=== PATIENT | female | born 1985 | race Hispanic/Latino ===

== ENCOUNTER → 2016-05-01 | Outpatient (CLI) | payer OTHER ==
--- NOTE | 2016-05-01 15:21 | Diagnostic Imaging Report ---
INDICATION: survey. FINDINGS: There is single live intrauterine fetus present. Fetus is currently breech and active. Placenta is anterior and not low. Amniotic fluid index appears normal. Anatomical survey fails to demonstrate a four-chamber heart or complete survey of spine due to position. Other anatomical structures are well visualized including three-vessel cord. Biometric measurements are BPD 4.47 cm, head circumference 16.37 cm, abdominal circumference 14.39 cm, and femur length 3.07 cm with heart beat of 140 beats per minute. Estimated weight is 300 g. IMPRESSION: Sonographic measurements are consistent with 19 weeks 4 days gestation. This correlates within one standard deviation with LMP. Estimated date of delivery by ultrasound is 09/21/2016. Dictated by: Dictated on workstation # [id number]
== END ==
LOC: RAD 13:52
PROVIDERS: ATTEND Family Medicine
DX: Z34.82 Encounter for supervision of other normal pregnancy, second trimester (principal)
CPT/HCPCS: 76805

== ENCOUNTER 2016-08-05 10:39 | Outpatient (CLI) | payer SELFPAY ==
--- NOTE | 2016-08-05 11:25 | Diagnostic Imaging Report ---
OB ultrasound. Biophysical profile. INDICATION: Decreased movement. FINDINGS: heart rate is 134 beats per minutes. The position is cephalic. Total FARHAN is 12 cm. The placenta is anterior. No placenta previa. Biophysical profile parameters are all met with total score of 8 out of 8. IMPRESSION: Biophysical profile score is 8 out of 8. Dictated by: Dictated on workstation # [id number]
[2016-08-05 11:51] VITALS: BP 116/72
== END 2016-08-05 11:51 | disposition home or self-care (01) ==
LOC: RAD 10:39
PROVIDERS: ATTEND Family Medicine
DX: O36.8130 Decreased fetal movements, third trimester, not applicable or unspecified (principal)
CPT/HCPCS: 76819

== ENCOUNTER 2016-09-24 08:29 | Inpatient (IN) | payer OTHER ==
[~2016-09-24] VITALS: Ht 154.9 cm; Wt 78.9 kg
[2016-09-24] VITALS (18 sets, daily range): BP systolic 101–163; BP diastolic 64–87
[2016-09-24] MEDS ORDERED: D5 LR IV SOLUTION 1,000 ML IV SCH (09:09)
[2016-09-24] MEDS ORDERED: LIDOCAINE/EPI 1%-1:200,000 (XYLOCAINE) 30 ML VIAL INJ PRN (09:15)
[2016-09-24] MEDS ORDERED: MINERAL OIL CONCENTRATE 99.9% 15 ML UDC TOP PRN (09:15)
[2016-09-24] MEDS ORDERED: OXYTOCIN/NORMAL SALINE 500 ML IV ONE ×2 (09:28→10:16)
[2016-09-24 09:38] LABS: BASOPHILS % (AUTO) 0 % (0-10); EOSINOPHILS # (AUTO) 0.1 10^3/uL (0.0-0.3); EOSINOPHILS % (AUTO) 1 % (0-10); LYMPHOCYTES # (AUTO) 2.7 X 10^3 (1.0-4.0); LYMPHOCYTES % (AUTO) 19 % (12-44); MEAN CORPUSCULAR HEMOGLOBIN 30 PG (25-34); MEAN CORPUSCULAR HGB CONC 34 G/DL (32-36); MEAN CORPUSCULAR VOLUME 87 FL (80-99); MEAN PLATELET VOLUME 11.3 FL (7.4-10.4); MONOCYTES # (AUTO) 0.7 X 10^3 (0.0-1.0); MONOCYTES % (AUTO) 5 % (0-12); NEUTROPHILS # (AUTO) 10.7 X 10^3 (1.8-7.8); NEUTROPHILS % (AUTO) 75 % (42-75); PLATELET COUNT 205 10^3/uL (130-400); RED BLOOD COUNT 4.25 10^6/uL (4.35-5.85); RED CELL DISTRIBUTION WIDTH 14.1 % (10.0-14.5); WHITE BLOOD COUNT 14.2 10^3/uL (4.3-11.0)
[2016-09-24] MEDS: OXYTOCIN/NORMAL SALINE 500 ML IV SCH ×2 (09:50→10:23)
[2016-09-24] MEDS ORDERED: IBUPROFEN 600 MG (MOTRIN) TAB PO ONE (10:17)
[2016-09-24] MEDS: IBUPROFEN 600 MG (MOTRIN) TAB PO SCH ×3 (10:21→22:57)
--- NOTE | 2016-09-24 10:27 | OB Labor & Delivery Record ---
Vag Delivery Note Vag Delivery Note Date of Delivery: 09/24/16 Preoperative Diagnosis: María Lua is a 30 /Para 2/1 , Gestational Age 39w6d Postoperative Diagnosis: Same Surgeon: JAYME YOUNGBLOOD Manager Infrastructure: Montse Thompson MS3 Anesthesia: None Delivery Type: Spontaneous vaginal Findings: Viable male infant, apgars 8/9, weight 8#0 Lacerations: first degree perineal Intact placenta with 3 vessel cord. No nuchal cord, body cord or shoulder dystocia Estimated Blood Loss: 350 ml Complications: None Condition: Stable Description of Procedure: The patient is a 30 yo who presented in active labor. She was admitted and informed consent was obtained. Her labor course was remarkable for rapid progression after arrival from 7 to complete. She progressed to complete dilatation and began to push. She was then set up for delivery. The infant's head was delivered atraumatically in the CIPRIANO position. The shoulders and remainder of the 's body were then delivered without difficulty. Upon delivery, the was vigorous and was placed on maternal abdomen. After the cord stopped pulsing, the cord was doubly clamped and cut and the infant was handed off to the pediatric staff. An intact placenta with 3-vessel cord delivered via Rosa and there was found to be minimal bleeding.~ Vigorous fundal massage was performed and the fundus was found to be firm. IV oxytocin was given. Examination of the vagina and perineum revealed a first degree laceration repaired in the usual fashion with 3-0 rapide suture. Following the repair, sponge, instrument and needle counts were correct. Mom and baby were both in stable condition in the labor suite. Vitals - Labs Labs Laboratory Tests 09/24/16 09:25: White Blood Count 14.2H, Red Blood Count 4.25L, Hemoglobin 12.6, Hematocrit 37, Mean Corpuscular Volume 87, Mean Corpuscular Hemoglobin 30, Mean Corpuscular Hemoglobin Concent 34, Red Cell Distribution Width 14.1, Platelet Count 205, Mean Platelet Volume 11.3H, Neutrophils (%) (Auto) 75, Lymphocytes (%) (Auto) 19 , Monocytes (%) (Auto) 5, Eosinophils (%) (Auto) 1, Basophils (%) (Auto) 0, Neutrophils # (Auto) 10.7H, Lymphocytes # (Auto) 2.7, Monocytes # (Auto) 0.7, Eosinophils # (Auto) 0.1, Basophils # (Auto) 0.0 JAYME YOUNGBLOOD MD Sep 24, 2016 10:27 am
[2016-09-24] MEDS ORDERED: PREN1TAB86 PO (10:29)
--- NOTE | 2016-09-24 10:34 | History & Physical-OB ---
OB - Chief Complaint & HPI Date/Time Date of Admission: Date of Admission: Sep 24, 2016 at 9:07 am Time Seen by Provider: 09:30 Chief Complaint/History OB-Reason for Admission/Chief: Onset of Labor Hx : 2 Hx Para: 1 Expected Date of Delivery: Sep 25, 2016 Gestational Age in Weeks: 39 Gestational Age in Days: 6 History of Labs O+, RI, HIV/HepB/RPR NR, GC/chlamydia neg. Tetra screen 04/07 risk of trisomy 18 - declined further testing after consult with MFM except had targeted US there which was normal. 1 hour glucola normal. GBS neg. Other History of genital herpes, on suppression therapy from 36 weeks on with acyclovir, no symptoms of burning or pain in vaginal area, no lesions noted on exam yesterday in clinic. Patient reported possible history of migrainous stroke at age 21 outside of the [place], she was told it was due to stress and migraine, her symptoms were not entirely consistent with a localized stroke and an MRI done here prior to for elevated prolactin did not clearly show old ischemia but did show gliosis of unknown etiology in corpus callosum possibly secondary to infection or trauma, less likely ischemia in this location. She was on aspirin most of (had stopped on her own a couple of weeks before delivery) and referred to Neurology at the first visit, but did not attend and also was referred to [facility] due to her abnormal quad screen and history, but apparently did not discuss the stroke like episode with [facility]. Allergies and Home Medications Allergies Coded Allergies: No Known Drug Allergies (Unverified , 09/03/15) Home Medications Vit W-Ca,Fe,FA(<1 mg) 1 Each Tablet, 1 EACH PO DAILY, (Reported) OB - History Hx of Present Care: Yes Ultrasounds: Normal mid trimester US Obstetrical Complications: None Medical Complications: None Other Concerns: See HPI Obstetrical History Hx : 2 Hx Para: 1 Hx # Term Pregnancies: 1 Hx # Pregnancies: 0 Number of Living Children: 1 Hx Termination: No Hx Multiple Gestation: No Hx Ectopic : No Hx Stillbirth: No Hx Complication: No Hx Induced Hypertens: No Hx Maternal Gestational Diabet: No Hx Hemorrhage: No Delivery History Hx Dystocia: No Hx Forceps Assisted Delivery: No Hx Vacuum Extraction Assisted: No Hx Placenta Abnormality: No Hx Distress: No Hx Large For Gestational Age I: No Hx Small for Gestational Age I: No Hx Section: No Hx Vaginal Delivery Post C-Sec: No Hx Blood Disorders: No Adverse Rxn to Tranfusion: No Patient Past Medical History PMHx: Migraines Stroke like symptoms with unclear diagnosis at age 21 Genital herpes PSurgHx: Bilateral inguinal hernia repair Social History/Family History HIV/AIDS: No Sexually Transmitted Disease: Yes (Herpes) Alcohol Use: Denies Use Recreational Drug Use: No Smoking Cessation: Never smoker Immunizations Tetanus Booster (TDap): Less than 5yrs Rubella: immune RPR/VDRL: Negative GBS Status: Negative HBsAG: Negative OB - Admission Exam Physical Exam Date Seen by Provider: Sep 24, 2016 Time Seen by Provider: 09:30 HEENT: NCAT Abdomen: Gravid Cervical Dilatation: 10cm Effacement: 100% Station: +1 Membranes: Intact Heart Rate: 140's Accelerations: Accelerations Present Decelerations: No Decelerations Short Term Variability: Present Community Administrator Variability: Average (6-25) Contractions on Admission: < 5 Minutes Apart Date/Time Contractions Began;: 09/24 at 0300 Intensity: Firm Labs Laboratory Tests Test 09/24/16 09:25 Range/Units White Blood Count 14.2 H 4.3-11.0 10^3/uL Red Blood Count 4.25 L 4.35-5.85 10^6/uL Hemoglobin 12.6 11.5-16.0 G/DL Hematocrit 37 35-52 % Mean Corpuscular Volume 87 80-99 FL Mean Corpuscular Hemoglobin 30 25-34 PG Mean Corpuscular Hemoglobin Concent 34 32-36 G/DL Red Cell Distribution Width 14.1 10.0-14.5 % Platelet Count 205 130-400 10^3/uL Mean Platelet Volume 11.3 H 7.4-10.4 FL Neutrophils (%) (Auto) 75 42-75 % Lymphocytes (%) (Auto) 19 12-44 % Monocytes (%) (Auto) 5 0-12 % Eosinophils (%) (Auto) 1 0-10 % Basophils (%) (Auto) 0 0-10 % Neutrophils # (Auto) 10.7 H 1.8-7.8 X 10^3 Lymphocytes # (Auto) 2.7 1.0-4.0 X 10^3 Monocytes # (Auto) 0.7 0.0-1.0 X 10^3 Eosinophils # (Auto) 0.1 0.0-0.3 10^3/uL Basophils # (Auto) 0.0 0.0-0.1 10^3/uL OB - Assessment/Plan/Diagnosis Assessment Assessment: active labor Plan Plan: Expectant Management Other Plan Monitor BP and neuro status closely Copy Copies To 1: JAYME YOUNGBLOOD MD, BETHANY N MD Sep 24, 2016 10:34 am
--- OUTSIDE RECORDS SUMMARY | 2016-09-24 10:38 | XMS REPORT ---
Author DEVON De Leon [facility] eClinicalWorks Address Unknown Phone Unavailable Care Team Providers Care Dispatcher Service Name Role Phone DEVON BEAVERS CP Unavailable Allergies No Known Allergies Problems Problem Type Condition Code Onset Dates Condition Status Assessment Herpes simplex vulvovaginitis A60.04 Active Medications No Known Medications Results No Known Results Summary Purpose eClinicalWorks Submission
--- OUTSIDE RECORDS SUMMARY | 2016-09-24 10:38 | XMS REPORT ---
Author DEVON De Leon [facility] eClinicalWorks Address Unknown Phone Unavailable Care Team Providers Care Telegraph Dispatcher Name Role Phone DEVON BEAVERS CP Unavailable Allergies, Adverse Reactions, Alerts Substance Reaction Event Type N.K.D.A. Info Not Available Non Drug Allergy Problems Problem Type Condition Code Onset Dates Condition Status Assessment Labial lesion N90.89 Active Assessment Herpes simplex vulvovaginitis A60.04 Active Assessment Mixed incontinence N39.46 Active Assessment Encounter for cervical Pap smear with pelvic exam Z01.419 Active Medications Medication Code System Code Instructions Start Date End Date Status Dosage Acyclovir [facility] [address]-00 400 MG Orally Three times a day July 17, 2015 1 tablet Detrol LA [facility] [address]-23 4 MG Orally Once a day July 17, 2015 1 capsule Procedures Procedure Coding System Code Date SPECIMEN HANDLING CPT-4 41316 July 17, 2015 Office Visit, Est Pt., Level 4 CPT-4 76050 July 17, 2015 RHETT VIRUS ISOLATE, HSV CPT-4 86729 July 17, 2015 Vital Signs Date/Time: July 17, 2015 Temperature 97.4 F Weight 138.0 lbs Height 5'0" in BMI 26.95 Index Cardiac Monitoring Heart Rate 76 bpm Results Name Result Date Reference Range Unit Abnormality Flag CULTURE, VIRAL (HSV W/ TYPING) PAP TEST W/ HPV REGARDLESS ----HPV, high-risk Negative [id number] Negative ----. . [id number] Summary Purpose eClinicalWorks Submission
--- OUTSIDE RECORDS SUMMARY | 2016-09-24 10:39 | XMS REPORT ---
Author Author NELLA PAM Organization [facility] Address [address] [place] [address] Care Team Providers Care Lead Former Name Role Phone NELLA PAM Unavailable PROBLEMS Type Condition ICD9-CM Code FHO49-NV Code Onset Dates Condition Status SNOMED Code Assessment Stress incontinence N39.3 16 Nov, 2015 Active 98220902 Problem Depression, unspecified depression type F32.9 Active 32141878 Problem Midline cystocele N81.11 Active 100977190 Problem Stress incontinence N39.3 Active 62125485 Problem Tension headache G44.209 Active 931413071 Problem Irregular menstrual bleeding N92.6 Active 82212533 Problem Hirsutism L68.0 Active 167915731 Problem Hyperprolactinemia E22.1 Active 908037109 Problem 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 804147090 ALLERGIES Unknown Allergies SOCIAL HISTORY No smoking Hx information available PLAN OF CARE VITAL SIGNS Height 5'0" in 2015-12-13 Weight 152.6 lbs 2015-12-13 Heart Rate 72 bpm 2015-12-13 Respiratory Rate 18 2015-12-13 BMI 29.80 kg/m2 2015-12-13 Blood pressure systolic 128 mmHg 2015-12-13 Blood pressure diastolic 82 mmHg 2015-12-13 MEDICATIONS Medication Instructions Dosage Frequency Start Date End Date Duration Status Myrbetriq 25 MG Orally Once a day 1 tablet 24h Nov, Active Acyclovir 400 MG Orally Three times a day 1 tablet 8h Jun, 05 days Active RESULTS No Results PROCEDURES Procedure Date Ordered Related Diagnosis Body Site Office Visit, Est Pt., Level 3 Dec 13, 2015 IMMUNIZATIONS No Known Immunizations
--- OUTSIDE RECORDS SUMMARY | 2016-09-24 10:39 | XMS REPORT ---
Author Author DEVNO BEAVERS [facility] eClinicalWorks Address Unknown Phone Unavailable Care Team Providers Care Web Developer Programmer Name Role Phone DEVON BEAVERS CP Unavailable Allergies, Adverse Reactions, Alerts Substance Reaction Event Type N.K.D.A. 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 Medications Medication Code System Code Instructions Start Date End Date Status Dosage Detrol LA [facility] [address]-96 4 MG Orally Once a day July 17, 2015 1 capsule Treximet [facility] [address]-12 85-500 MG Orally 2 times a day PRN September 06, 2015 Take one tablet at the onset of headache, may repeat in 2 hours if needed for continued headache Acyclovir [facility] [address]-58 400 MG Orally Three times a day July 17, 2015 1 tablet Trazodone HCl [facility] [address]-49 50 mg Orally Once a day August 09, 2015 Take 1/2 tablet at hs and if needed may take the other half Procedures Procedure Coding System Code Date Office Visit, Est Pt., Level 3 CPT-4 74335 Nov 04, 2015 Vital Signs Date/Time: Nov 04, 2015 Cardiac Monitoring Heart Rate 68 bpm Weight 149.0 lbs Height 5'0" in BMI 29.10 Index Blood Pressure Diastolic 76 mmHg Blood Pressure Systolic 118 mmHg Results No Known Results Summary Purpose eClinicalWorks Submission
--- OUTSIDE RECORDS SUMMARY | 2016-09-24 10:39 | XMS REPORT ---
Author DEVON De Leon [facility] eClinicalWorks Address Unknown Phone Unavailable Care Team Providers Care Sign Painter Apprentice Name Role Phone DEVON BEAVERS CP Unavailable Allergies No Known Allergies Problems Problem Type Condition Code Onset Dates Condition Status Assessment Labial lesion N90.89 Active Medications No Known Medications Procedures Procedure Coding System Code Date HERPES SIMPLEX TEST CPT-4 00388 July 23, 2015 VENIPUNCT, ROUTINE* CPT-4 42625 July 23, 2015 HERPES SIMPLEX TYPE 2 CPT-4 02854 July 23, 2015 Results No Known Results Summary Purpose eClinicalWorks Submission
--- OUTSIDE RECORDS SUMMARY | 2016-09-24 10:39 | XMS REPORT ---
Author DEVON De Leon Organization eClinicalWorks Address Unknown Phone Unavailable Care Team Providers Care Germination Testing Manager Name Role Phone DEVON BEAVERS CP Unavailable Allergies No Known Allergies Problems Problem Type Condition Code Onset Dates Condition Status Assessment Labial lesion N90.89 Active Medications No Known Medications Results No Known Results Summary Purpose eClinicalWorks Submission
--- OUTSIDE RECORDS SUMMARY | 2016-09-24 10:39 | XMS REPORT ---
Author Author JAYME YOUNGBLOOD Organization 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 069334746 Problem Midline cystocele N81.11 Active 381107853 Problem Depression, unspecified depression type F32.9 Active 30322911 Problem Hirsutism L68.0 Active 688256562 Problem care, subsequent in first trimester Z34.81 Active 288538953 Problem History of herpes genitalis Z86.19 Active 602317569 Problem Stress incontinence N39.3 Active 11519081 Problem Tension headache G44.209 Active 069167738 Problem Migraine without aura and without status migrainosus, not intractable G43.009 Active 074637226 Problem History of stroke Z86.73 Active 088359964 ALLERGIES Unknown Allergies SOCIAL HISTORY No smoking Hx information available PLAN OF CARE VITAL SIGNS MEDICATIONS Medication Instructions Dosage Frequency Start Date End Date Duration Status Aspirin 81 MG Orally Once a day 1 tablet 24h Feb, 30 day(s) Active RESULTS No Results PROCEDURES No Known procedures IMMUNIZATIONS No Known Immunizations
--- OUTSIDE RECORDS SUMMARY | 2016-09-24 10:39 | XMS REPORT ---
Author Author YURI LOMELI [facility] eClinicalWorks Address Unknown Phone Unavailable Care Team Providers Care Extermination Inspector Name Role Phone YURI LOMELI CP Unavailable Allergies, Adverse Reactions, Alerts Substance Reaction Event Type N.K.D.A. 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 Problem Irregular menstrual bleeding N92.6 Active Problem Hyperprolactinemia E22.1 Active Problem Routine health maintenance Z00.00 Active Medications Medication Code System Code Instructions Start Date End Date Status Dosage Phenergan [facility] [address]-57 25 MG Rectal every 12 hrs prn nausea or vomiting Feb 18, 2016 Feb 25, 2016 1 suppository as needed Myrbetriq [facility] [address]-22 25 MG Orally Once a day Dec 13, 2015 1 tablet Procedures Procedure Coding System Code Date URINALYSIS, AUTO, W/O SCOPE CPT-4 70315 Feb 18, 2016 Office Visit, Est Pt., Level 3 CPT-4 43565 Feb 18, 2016 URINE TEST CPT-4 79875 Feb 18, 2016 Vital Signs Date/Time: Feb 18, 2016 Cardiac Monitoring Heart Rate 70 bpm Weight 149.6 lbs Height 5'0" in BMI 29.21 Index Blood Pressure Diastolic 78 mmHg Blood Pressure Systolic 122 mmHg Results Name Result Date Reference Range Unit Abnormality Flag TEST, URINE (IN HOUSE) ----RESULTS POSITIVE [id number] ----Lot # + [id number] ----Control [id number] ----Exp date [id number] UA LONG DIP (IN HOUSE) ----SAYRA negative 20160218 ----GLU negative 20160218 ----SG >=1.030 20160218 ----KET negative 20160218 ----pH 7.0 20160218 ----Protein negative 20160218 ----BLO negative 20160218 ----LESLIE negative 20160218 ----Color yellow 20160218 ----Lot # [id number] ----Odor none 20160218 ----Exp date 20160218 ----URO 0.2 20160218 ----NIT negative 20160218 ----Clarity clear 20160218 ----Lot # [id number] ----Exp date [id number] Summary Purpose eClinicalWorks Submission
--- OUTSIDE RECORDS SUMMARY | 2016-09-24 10:39 | XMS REPORT | Continuity of Care Document ---
Author Author [facility] Organization [facility] Address Unknown Phone Unavailable Allergies Active Description Code Type Severity Reaction Onset Reported/Identified Relationship to Patient Clinical Status Yes No Known Drug Allergies [id number] Drug Allergy Unknown N/ A 09/03/2015 Medications Problems Date Dx Coded Attending Type Code Diagnosis Diagnosed By 09/05/2015 PAM CARMEN AREA MECHANIC Ot E22.1 HYPERPROLACTINEMIA 09/05/2015 PAM CARMEN AREA MECHANIC Ot N92.6 IRREGULAR MENSTRUATION, UNSPECIFIED 09/05/2015 PAM CARMEN AREA MECHANIC Ot R10.2 PELVIC AND PERINEAL PAIN 09/20/2015 PAM CARMEN AREA MECHANIC Ot E22.1 HYPERPROLACTINEMIA 09/20/2015 PAM CARMEN R AREA MECHANIC Ot N92.6 IRREGULAR MENSTRUATION, UNSPECIFIED 09/20/2015 PAM CARMEN R AREA MECHANIC Ot R10.2 PELVIC AND PERINEAL PAIN 10/29/2015 PAM CARMEN AREA MECHANIC Ot E22.1 HYPERPROLACTINEMIA 10/29/2015 PAM CARMEN R AREA MECHANIC Ot N92.6 IRREGULAR MENSTRUATION, UNSPECIFIED 10/29/2015 PAM CARMEN AREA MECHANIC Ot R10.2 PELVIC AND PERINEAL PAIN 02/24/2016 PAM CARMEN R AREA MECHANIC Ot E22.1 HYPERPROLACTINEMIA 02/24/2016 PAM CARMEN R AREA MECHANIC Ot N92.6 IRREGULAR MENSTRUATION, UNSPECIFIED 02/24/2016 PAM CARMEN AREA MECHANIC Ot R10.2 PELVIC AND PERINEAL PAIN 02/25/2016 YURI LOMELI GYM INSTRUCTOR Ot O21.0 MILD HYPEREMESIS GRAVIDARUM 02/25/2016 YURI LOMELI GYM INSTRUCTOR Ot Z3A.09 9 WEEKS GESTATION OF 03/01/2016 YURI LOMELI GYM INSTRUCTOR Ot O21.0 MILD HYPEREMESIS GRAVIDARUM 03/01/2016 YURI LOMELI GYM INSTRUCTOR Ot Z3A.09 9 WEEKS GESTATION OF 05/01/2016 ARMANIYURI NEVAREZ L GYM INSTRUCTOR Ot O21.0 MILD HYPEREMESIS GRAVIDARUM 05/01/2016 ARMANI YURI L GYM INSTRUCTOR Ot Z3A.09 9 WEEKS GESTATION OF 05/04/2016 JAYME YOUNGBLOOD MD Ot Z34.82 ENCOUNTER FOR SUPRVSN OF NORMAL PREGNANC 05/08/2016 JAYME YOUNGBLOOD MD Ot Z34.82 ENCOUNTER FOR SUPRVSN OF NORMAL PREGNANC 05/18/2016 YURI LOMELI L GYM INSTRUCTOR Ot O21.0 MILD HYPEREMESIS GRAVIDARUM 05/18/2016 YURI LOMELI GYM INSTRUCTOR Ot Z3A.09 9 WEEKS GESTATION OF 05/18/2016 JAYME YOUNGBLOOD MD Ot Z34.82 ENCOUNTER FOR SUPRVSN OF NORMAL PREGNANC 05/18/2016 JAYME YOUNGBLOOD MD, Ot Z34.82 ENCOUNTER FOR SUPRVSN OF NORMAL PREGNANC 08/05/2016 PAM CARMEN AREA MECHANIC Ot E22.1 HYPERPROLACTINEMIA 08/05/2016 PAM CARMEN AREA MECHANIC Ot N92.6 IRREGULAR MENSTRUATION, UNSPECIFIED 08/05/2016 PAM CARMEN AREA MECHANIC Ot R10.2 PELVIC AND PERINEAL PAIN 08/05/2016 YURI LOMELI GYM INSTRUCTOR Ot O21.0 MILD HYPEREMESIS GRAVIDARUM 08/05/2016 YURI LOMELI GYM INSTRUCTOR Ot Z3A.09 9 WEEKS GESTATION OF 08/05/2016 JAYME YOUNGBLOOD MD Ot O36.8130 DECREASED MOVEMENTS, THIRD TRIMEST 09/11/2016 PAM CARMEN AREA MECHANIC Ot E22.1 HYPERPROLACTINEMIA 09/11/2016 PAM CARMEN AREA MECHANIC Ot N92.6 IRREGULAR MENSTRUATION, UNSPECIFIED 09/11/2016 PAM CARMEN AREA MECHANIC Ot R10.2 PELVIC AND PERINEAL PAIN 09/11/2016 YURI LOMELI L GYM INSTRUCTOR Ot O21.0 MILD HYPEREMESIS GRAVIDARUM 09/11/2016 YURI LOMELI GYM INSTRUCTOR Ot Z3A.09 9 WEEKS GESTATION OF Procedures Results Encounters ACCT No. Visit Date/Time Discharge Status Pt. Type Provider Facility Loc./Unit Complaint [id number] 08/05/2016 10:39:00 2016 11:51:00 DIS Outpatient JAYME YOUNGBLOOD MD [facility] RAD [id number] 05/01/2016 13:52:00 ACT Outpatient JAYME YOUNGBLOOD MD [facility] RAD CARE,SUBSEQUENT IN 2ND TRIMESTE [id number] 02/24/2016 13:20:00 ACT Outpatient YURI LOMELI [facility] RAD HYPEREMESIS [id number] 09/03/2015 12:33:00 ACT Outpatient PAM CARMEN APRN [facility] RAD IRREGULAR MENSTRUAL BLEEDING,HYPERPROLACTINEMIA
[2016-09-24] MEDS ORDERED: WITCH HAZEL(TUCKS) 40 EA JAR TOP PRN (11:00)
[2016-09-24] MEDS: BENZOCAINE/MENTHOL (DERMOPLAST) 56 ML CAN TP PRN (12:05)
[2016-09-24] MEDS ORDERED: CATHETER FLUSH 10 ML SYR IV SCH ×2 (14:00)
[2016-09-25 02:05] VITALS: BP 100/64
[2016-09-25] MEDS: IBUPROFEN 600 MG (MOTRIN) TAB PO SCH ×2 (05:20→11:55)
[2016-09-25] MEDS ORDERED: PRENATAL VITAMIN 1 EA TAB PO SCH (07:00)
[2016-09-25 07:06] LABS: BASOPHILS % (AUTO) 0 % (0-10); EOSINOPHILS # (AUTO) 0.2 10^3/uL (0.0-0.3); EOSINOPHILS % (AUTO) 2 % (0-10); LYMPHOCYTES # (AUTO) 2.7 X 10^3 (1.0-4.0); LYMPHOCYTES % (AUTO) 22 % (12-44); MEAN CORPUSCULAR HEMOGLOBIN 30 PG (25-34); MEAN CORPUSCULAR HGB CONC 34 G/DL (32-36); MEAN CORPUSCULAR VOLUME 89 FL (80-99); MEAN PLATELET VOLUME 10.8 FL (7.4-10.4); MONOCYTES # (AUTO) 0.6 X 10^3 (0.0-1.0); MONOCYTES % (AUTO) 5 % (0-12); NEUTROPHILS # (AUTO) 8.6 X 10^3 (1.8-7.8); NEUTROPHILS % (AUTO) 71 % (42-75); PLATELET COUNT 188 10^3/uL (130-400); RED BLOOD COUNT 3.93 10^6/uL (4.35-5.85); RED CELL DISTRIBUTION WIDTH 14.2 % (10.0-14.5); WHITE BLOOD COUNT 12.1 10^3/uL (4.3-11.0)
--- NOTE | 2016-09-25 09:03 | Progress Note (SOAP) ---
Subjective Subjective/Events-last exam Patient presents today in no acute distress. Patient states that she has been having lower abdominal cramping. The cramping has occurred 3 times since delivery and lasts for 20 minutes each time. The patient states that it feels as if she is having a contraction. Patient states that she experiences vaginal bleeding along with the abdominal cramping. Additionally, patient states she had a unilateral (R side) migraine-like headache last night. She rated the pain a 3/10. Patient states she feels weak. Patient denies feeling faint when she stands up. Patient has been able to urinate but has not had a bowel movement since delivery. Patient is and formula feeding. Review of Systems Date Seen by Provider: Sep 25, 2016 Time Seen by Provider: 07:45 HEENT: Head Aches Gastrointestinal: Abdominal Pain Neurological: Weakness Objective Exam Last Set of Vital Signs Vital Signs Date Time Temp Pulse Resp B/P (MAP) Pulse Ox O2 Delivery O2 Flow Rate FiO2 09/25/16 02:05 97.5 80 18 100/64 97 Room Air Capillary Refill : I&O Bad tableGeneral: Alert, Oriented X3, Cooperative Lungs: Clear to Auscultation, Normal Air Movement Heart: Regular Rate, Normal S1, Normal S2 Extremities: No Edema, No Tenderness/Swelling Psych/Mental Status: Mood NL Results/Procedures Lab Laboratory Tests 09/24/16 09:25: White Blood Count 14.2H, Red Blood Count 4.25L, Hemoglobin 12.6, Hematocrit 37, Mean Corpuscular Volume 87, Mean Corpuscular Hemoglobin 30, Mean Corpuscular Hemoglobin Concent 34, Red Cell Distribution Width 14.1, Platelet Count 205, Mean Platelet Volume 11.3H, Neutrophils (%) (Auto) 75, Lymphocytes (%) (Auto) 19 , Monocytes (%) (Auto) 5, Eosinophils (%) (Auto) 1, Basophils (%) (Auto) 0, Neutrophils # (Auto) 10.7H, Lymphocytes # (Auto) 2.7, Monocytes # (Auto) 0.7, Eosinophils # (Auto) 0.1, Basophils # (Auto) 0.0 09/25/16 06:59: White Blood Count 12.1H, Red Blood Count 3.93L, Hemoglobin 11.8, Hematocrit 35, Mean Corpuscular Volume 89, Mean Corpuscular Hemoglobin 30, Mean Corpuscular Hemoglobin Concent 34, Red Cell Distribution Width 14.2, Platelet Count 188, Mean Platelet Volume 10.8H, Neutrophils (%) (Auto) 71, Lymphocytes (%) (Auto) 22 , Monocytes (%) (Auto) 5, Eosinophils (%) (Auto) 2, Basophils (%) (Auto) 0, Neutrophils # (Auto) 8.6H, Lymphocytes # (Auto) 2.7, Monocytes # (Auto) 0.6, Eosinophils # (Auto) 0.2, Basophils # (Auto) 0.0 Assessment/Plan Assessment/Plan Admission Dx 1. abdominal cramping 2. headache 3. plan for discharge Plan 1. abdominal cramping -ibuprofen PRN, consider heating pad 2. headache -consider migraine prophylaxis, discuss at an outpatient visit and when the patient is not 3. discharge -if baby's 24 bilirubin is normal, plan to go home today Diagnosis/Problems: Clinical Quality Measures DVT/VTE Risk/Contraindication: Risk Factor Score Per Nursin RFS Level Per Nursing on Admit: 1=Low/No VTE PPSTACEY MARTÍNEZ MED STUDENT Sep 25, 2016 09:03
--- NOTE | 2016-09-25 09:11 | Discharge Summary ---
Diagnosis/Chief Complaint Date of Admission Sep 24, 2016 at 9:07 am Date of Discharge September 25, 2016 Admission Diagnosis Admission Diagnosis Term intrauterine at 39 weeks Spontaneous onset of labor Blood type O+ RI GBS neg Abnormal quad screen (04/07 risk T18) Genital herpes on acyclovir History of stroke-like event over 10 years ago Discharge Diagnosis s/p spontaneous vaginal delivery with first degree perineal laceration repair Blood type O positive- no need for rhogam RI- no need for MMR GBS neg Abnormal quad screen (04/07 risk T18)- MFM targeted US normal and infant with no abnormalities on exam Genital herpes on acyclovir- no evidence of outbreak, d/c suppressive therapy and monitor History of stroke-like event over 10 years ago- did not attend Neurology referral as of yet, recommend proceeding with referral. 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 Chief Complaint/HPI Chief Complaint/HPI 30 yo G2 now P2 presented in active labor at 39w6d. Discharge Summary-Simple/Stand Procedures Spontaneous vaginal delivery First degree laceration repair Discharge Physical Examination Allergies: Coded Allergies: No Known Drug Allergies (Unverified , 09/03/15) Vitals & I&Os Vital Sign - Last 12Hours Date Time Temp Pulse Resp B/P (MAP) Pulse Ox O2 Delivery O2 Flow Rate FiO2 09/25/16 02:05 97.5 80 18 100/64 97 Room Air General Appearance: Alert, Oriented X3, No Acute Distress Respiratory: Clear to Auscultation, Normal Air Movement Cardiovascular: Regular Rate, No Murmurs Abdominal: Other (fundus firm below umbilicus, appropriately ttp) Extremities: No Edema Neuro: Normal Speech, Strength at 5/5 X4 Ext, Normal Tone Psych/Mental Status: Mental Status NL, Mood NL Hospital Course Patient admitted and progressed rapidly through labor without complication. Delivered via with first degree laceration. Had elevated BP at time of delivery, no further elevated blood pressure . course uncomplicated, ambulated, tolerated diet, voided. She denied chest pain, shortness of breath, calf pain or swelling. Had some abdominal cramping and leg pain descending from pelvic area into both legs. Labs Laboratory Tests Test 09/24/16 09:25 09/25/16 06:59 Range/Units White Blood Count 14.2 H 12.1 H 4.3-11.0 10^3/uL Red Blood Count 4.25 L 3.93 L 4.35-5.85 10^6/uL Hemoglobin 12.6 11.8 11.5-16.0 G/DL Hematocrit 37 35 35-52 % Mean Corpuscular Volume 87 89 80-99 FL Mean Corpuscular Hemoglobin 30 30 25-34 PG Mean Corpuscular Hemoglobin Concent 34 34 32-36 G/DL Red Cell Distribution Width 14.1 14.2 10.0-14.5 % Platelet Count 205 188 130-400 10^3/uL Mean Platelet Volume 11.3 H 10.8 H 7.4-10.4 FL Neutrophils (%) (Auto) 75 71 42-75 % Lymphocytes (%) (Auto) 19 22 12-44 % Monocytes (%) (Auto) 5 5 0-12 % Eosinophils (%) (Auto) 1 2 0-10 % Basophils (%) (Auto) 0 0 0-10 % Neutrophils # (Auto) 10.7 H 8.6 H 1.8-7.8 X 10^3 Lymphocytes # (Auto) 2.7 2.7 1.0-4.0 X 10^3 Monocytes # (Auto) 0.7 0.6 0.0-1.0 X 10^3 Eosinophils # (Auto) 0.1 0.2 0.0-0.3 10^3/uL Basophils # (Auto) 0.0 0.0 0.0-0.1 10^3/uL Discharge Instructions to patient/family Please see electonic discharge instructions given to patient. Discharge Medications Reviewed and agree with Discharge Medication list on patient's Discharge Instruction sheet Clinical Quality Measures DVT/VTE Risk/Contraindication: Risk Factor Score Per Nursin RFS Level Per Nursing on Admit: 1=Low/No VTE PPX Copy Copies To 1: JAYME YOUNGBLOOD MD, BETHANY N MD Sep 25, 2016 9:10 am
[2016-09-25] MEDS ORDERED: ASPI-999 PO (09:19)
[2016-09-25] MEDS ORDERED: ACYC400T PO (09:19)
[2016-09-25 09:21] VITALS: BP 113/76
[2016-09-25] MEDS ORDERED: IBUP-1773 PO (09:21)
--- NOTE | 2016-09-25 09:24 | Discharge Instructions ---
Discharge Inst-Women's Serv Depart Medications New, Converted or Re-Newed RX: Transmitted to Pharmacy New Medications: Ibuprofen (Ibuprofen) 600 Mg Tablet 600 MG PO Q6H PRN for PAIN-MILD TO MODERATE, #60 TAB 0 Refills Continued Medications: Vit W-Ca,Fe,FA(<1 mg) ( Vitamins) 1 Each Tablet 1 EACH PO DAILY, TAB Discontinued Medications: Acyclovir (Acyclovir) 400 Mg Tablet 400 MG PO TID, TAB Aspirin (Aspirin) 81 Mg Tab.chew 81 MG PO DAILY, TAB Follow Up/Instructions Goal/Follow Up: Follow up with Dr. Morales in 6 weeks for visit We still recommend seeing Neurology for consultation- if you need assistance scheduling, please let [facility] know. (Referral has been placed previously to Dr. Jeancarlos Esquivel) Activity Activity: Activity as Tolerated (avoid strenuous activity x 6 weeks) Driving Instructions: You May Drive Nothing Inside Vagina: No Douching, No [place], No Tampons Diet Discharge Diet: No Restrictions Symptoms to Report to : Numbness/Tingling, Swelling Increased, Eyesight Changes, Fever Over 101 Degrees F, Pain/Pressure in Chest, Vaginal Bleeding Increase, Cramps in Feet or Legs, Lightheadedness, Vaginal Discharge Foul, Memory Changes Suddenly, Dizziness/Fainting, Shortness of Breath For Any Problems or Questions: Contact Your Physician Copies To 1: JAYME MORALES MD, BETHANY N MD Sep 25, 2016 9:24 am
[2016-09-25 12:36] VITALS: BP 121/77
[2016-09-25] MEDS: BENZOCAINE/MENTHOL (DERMOPLAST) 56 ML CAN TP PRN (13:30)
== END 2016-09-25 13:50 | disposition home or self-care (01) | DRG 774 ==
LOC: WSo 08:29 → LDRP 08:30 → WSo 09:09 → LDRP 12:50
PROVIDERS: ADMIT Family Medicine; ATTEND Family Medicine
PROC: 0HQ9XZZ Repair Perineum Skin, External Approach (ICD-10-PCS; principal; 2016-09-24)
PROC: 10E0XZZ Delivery of Products of Conception, External Approach (ICD-10-PCS; 2016-09-24)
DX: O98.513 Other viral diseases complicating pregnancy, third trimester (principal); B00.9 Herpesviral infection, unspecified; O70.0 First degree perineal laceration during delivery; R51 Headache; Z3A.39 39 weeks gestation of pregnancy; Z37.0 Single live birth
CPT/HCPCS: 36415; 85025; 86850; 86900; 86901; 99212

== ENCOUNTER → 2019-05-24 | Outpatient (CLI) | payer SELFPAY ==
[~2019-05-24] MED LIST: ACYC400T PO; ASPI-999 PO; IBUP-1773 PO; PREN1TAB86 PO
--- NOTE | 2019-05-24 14:04 | Diagnostic Imaging Report ---
PROCEDURE: US OB SINGLE FETUS <14 WKS. TECHNIQUE: Multiple real-time grayscale images were obtained over the gravid uterus in various projections. INDICATION: dating. FINDINGS: Uterus measures 11.1 x 7.8 x 8.7 cm. There is an intrauterine gestational sac containing a pole. [place]-rump length measurement is approximately 3.0 cm consistent with 10 weeks 0 days gestation. heart rate was recorded at 172 BPM. No roger-gestational sac hemorrhage is detected. Maternal adnexa is unremarkable. IMPRESSION: Single live IUP approximately 10 weeks 0 days gestational age. The estimated date of confinement sonographically is 12/20/2019. Dictated by: Dictated on workstation # [id number]
== END ==
LOC: RAD 11:16
PROVIDERS: ATTEND Family Medicine
DX: Z34.91 Encounter for supervision of normal pregnancy, unspecified, first trimester (principal); Z3A.10 10 weeks gestation of pregnancy
CPT/HCPCS: 76801

== ENCOUNTER 2019-12-13 06:00 | Inpatient (IN) | payer OTHER ==
[2019-12-13] VITALS (21 sets, daily range): BP systolic 92–162; BP diastolic 51–90
--- NOTE | 2019-12-13 06:30 | NUR ---
ZACHERY LOYOLA presented to unit via ambulatory from ED, accompanied by staff, with c/o INDUCTION. ZACHERY LOYOLA weighed, gowned, voided, and to bed. EFHM and TOCO applied, VS taken. ZACHERY LOYOLA oriented to bed controls, call light, TV, heat, and A/C controls.
[2019-12-13] MEDS ORDERED: D5 LR IV SOLUTION 1,000 ML IV SCH (07:50)
[2019-12-13] MEDS ORDERED: OXYTOCIN PRE-MIX DRIP 500 ML IV SCH ×2 (07:50→12:15)
[2019-12-13] MEDS ORDERED: D5 LR IV SOLUTION 1,000 ML IV ONE (07:52)
[2019-12-13] MEDS ORDERED: OXYTOCIN PRE-MIX DRIP 500 ML IV ONE (07:53)
[2019-12-13] MEDS ORDERED: MINERAL OIL CONCENTRATE 99.9% 15 ML UDC TOP PRN (08:00)
[2019-12-13 08:04] LABS: BASOPHILS % (AUTO) 0 % (0-10); EOSINOPHILS % (AUTO) 0 % (0-10); HEMATOCRIT 35 % (35-52); HEMOGLOBIN 11.5 G/DL (11.5-16.0); LYMPHOCYTES % (AUTO) 24 % (12-44); MEAN CORPUSCULAR HEMOGLOBIN 28 PG (25-34); MEAN CORPUSCULAR HGB CONC 33 G/DL (32-36); MEAN CORPUSCULAR VOLUME 85 FL (80-99); MEAN PLATELET VOLUME 10.7 FL (7.4-10.4); MONOCYTES # (AUTO) 0.5 X 10^3 (0.0-1.0); MONOCYTES % (AUTO) 6 % (0-12); NEUTROPHILS # (AUTO) 5.8 X 10^3 (1.8-7.8); NEUTROPHILS % (AUTO) 70 % (42-75); PLATELET COUNT 223 10^3/uL (130-400); WHITE BLOOD COUNT 8.4 10^3/uL (4.3-11.0)
--- NOTE | 2019-12-13 08:23 | History & Physical-OB ---
OB - Chief Complaint & HPI Date/Time Date of Admission: Date of Admission: Dec 13, 2019 at 06:20 Date seen by a Provider: Dec 13, 2019 Time Seen by a Provider: 08:55 Chief Complaint/History OB-Reason for Admission/Chief: Induction of Labor Hx : 3 Hx Para: 2 Expected Date of Delivery: Dec 20, 2019 Gestational Age in Weeks: 39 Gestational Age in Days: 0 Indication for induction: maternal discomfort History of Labs O+, antibody neg, RI. HIV/HepB/RPR NR. GC/chlamydia neg. GBS neg. Allergies and Home Medications Allergies Coded Allergies: No Known Drug Allergies (Unverified , 09/03/15) Home Medications Acyclovir 400 Mg Tablet, 400 MG PO TID, (Reported) Vit W-Ca,Fe,FA(<1 mg) 1 Each Tablet, 1 EACH PO DAILY, (Reported) Patient Home Medication List Home Medication List Reviewed: Yes OB - History Hx of Present Care: Yes Ultrasounds: Normal mid trimester US Obstetrical Complications: None Medical Complications: None Obstetrical History Hx : 3 Hx Para: 2 Hx # Term Pregnancies: 2 Hx # Pregnancies: 0 Number of Living Children: 2 Hx Termination: No Hx Multiple Gestation: No Hx Ectopic : No Hx Stillbirth: No Hx Complication: No Hx Induced Hypertens: No Hx Maternal Gestational Diabet: No Hx Hemorrhage: No Delivery History Hx Dystocia: No Hx Forceps Assisted Delivery: No Hx Vacuum Extraction Assisted: No Hx Placenta Abnormality: No Hx Distress: No Hx Large For Gestational Age I: No Hx Small for Gestational Age I: No Hx Section: No Hx Vaginal Delivery Post C-Sec: No Hx Blood Disorders: No Adverse Rxn to Tranfusion: No Patient Past Medical History PMHx: Migraines Stroke like symptoms with unclear diagnosis at age 21 Genital herpes PSurgHx: Bilateral inguinal hernia repair Social History/Family History HIV/AIDS: No Recent Infectious Disease Expo: No Sexually Transmitted Disease: Yes (Herpes) Alcohol Use: Denies Use Recreational Drug Use: No Smoking Cessation: Never smoker 2nd Hand Smoke Exposure: No Immunizations Tetanus Booster (TDap): Less than 5yrs Rubella: immune RPR/VDRL: Negative GBS Status: Negative HBsAG: Negative OB - Admission Exam Physical Exam HEENT: NCAT Abdomen: Non tender Extremities: Normal Cervical Dilatation: 4cm (external genital exam done and no herpes lesions n oted) Effacement: 25% Station: -3 Membranes: Intact Heart Rate: 140's Accelerations: Accelerations Present Decelerations: No Decelerations Short Term Variability: Present Care Home Variability: Average (6-25) Contractions on Admission: 6-10 Minutes Apart Aaron Scoring Tool (Modified) Dilation (cm): 3-4cm (2) Effacement (%): 0-30% (0) Descent/Station: -3 (0) Cervix Consistency: Soft (2) Cervix Position: Anterior (2) Add 1 point for: Each previous vaginal delivery (1) (2) Aaron Score: 8 Labs Laboratory Tests Test 12/13/19 07:30 Range/Units White Blood Count 8.4 4.3-11.0 10^3/uL Red Blood Count 4.09 L 4.35-5.85 10^6/uL Hemoglobin 11.5 11.5-16.0 G/DL Hematocrit 35 35-52 % Mean Corpuscular Volume 85 80-99 FL Mean Corpuscular Hemoglobin 28 25-34 PG Mean Corpuscular Hemoglobin Concent 33 32-36 G/DL Red Cell Distribution Width 14.4 10.0-14.5 % Platelet Count 223 130-400 10^3/uL Mean Platelet Volume 10.7 H 7.4-10.4 FL Neutrophils (%) (Auto) 70 42-75 % Lymphocytes (%) (Auto) 24 12-44 % Monocytes (%) (Auto) 6 0-12 % Eosinophils (%) (Auto) 0 0-10 % Basophils (%) (Auto) 0 0-10 % Neutrophils # (Auto) 5.8 1.8-7.8 X 10^3 Lymphocytes # (Auto) 2.0 1.0-4.0 X 10^3 Monocytes # (Auto) 0.5 0.0-1.0 X 10^3 Eosinophils # (Auto) 0.0 0.0-0.3 10^3/uL Basophils # (Auto) 0.0 0.0-0.1 10^3/uL OB - Assessment/Plan/Diagnosis Assessment Admission Dx Term at 39 weeks gestation Induction of labor Group B strep negative H/O HSV on acyclovir suppression therapy Admission Status: Inpatient Order (span 2 midnights) Reason for Inpatient Admission: Labor, delivery and course Plan Plan: Induction Induction Method: per Pitocin Protocol JAYME YOUNGBLOOD MD Dec 13, 2019 08:23
[2019-12-13] MEDS ORDERED: FLU QUADRIvalent (3YOA+) 60 mcg/0.5 ml 2020-21 (AFLURIA) IM ONE (10:00)
[2019-12-13] MEDS ORDERED: ACYC400T PO (10:21)
--- NOTE | 2019-12-13 11:22 | OB Labor & Delivery Record ---
Vag Delivery Note Vag Delivery Note Date of Delivery: 12/13/19 Preoperative Diagnosis: María Lua is a 34 /Para 3 / 2, Gestational Age (wks)39with 0 days Postoperative Diagnosis: Same Surgeon: JAYME YOUNGBLOOD Collision Repairer: Sania Esqueda, [id number] Anesthesia: None Delivery Type: Findings: Viable male infant, apgars 8/9, weight pending Lacerations: none Intact placenta with 3 vessel cord. [place] cord, No nuchal cord or shoulder dystocia Estimated Blood Loss: 250 ml Complications: None Condition: Stable Description of Procedure: The patient is a 34 year old female who presented for induction of labor. She was admitted and informed consent was obtained. Her labor course was remarkable for rapid course She progressed to complete dilatation and began to push. She was then set up for delivery. The infant's head was delivered atraumatically in the OA position. The shoulders and remainder of the 's body were then delivered without difficulty. Upon delivery, the was vigorous and placed on maternal chest. After the cord stopped pulsing, the cord was doubly clamped and cut and the remained on maternal chest. An intact placenta with 3- vessel cord delivered via Rosa and there was found to be minimal bleeding.~ Vigorous fundal massage was performed and the fundus was found to be firm. IV oxytocin was given. Examination of the vagina and perineum revealed no lacerations. Following the delivery, sponge, instrument and needle counts were correct. Mom and baby were both in stable condition in the labor suite. Vitals - Labs Vital Signs - I&O Vital Signs Date Time Temp Pulse Resp B/P (MAP) Pulse Ox O2 Delivery O2 Flow Rate FiO2 12/13/19 09:42 36.5 83 18 97 Room Air Labs Laboratory Tests 12/13/19 07:30: White Blood Count 8.4, Red Blood Count 4.09L, Hemoglobin 11.5, Hematocrit 35, Mean Corpuscular Volume 85, Mean Corpuscular Hemoglobin 28, Mean Corpuscular Hemoglobin Concent 33, Red Cell Distribution Width 14.4, Platelet Count 223, Mean Platelet Volume 10.7H, Neutrophils (%) (Auto) 70, Lymphocytes (%) (Auto) 24, Monocytes (%) (Auto) 6, Eosinophils (%) (Auto) 0, Basophils (%) (Auto) 0, Neutrophils # (Auto) 5.8, Lymphocytes # (Auto) 2.0, Monocytes # (Auto) 0.5, Eosinophils # (Auto) 0.0, Basophils # (Auto) 0.0 JAYME YOUNGBLOOD MD Dec 13, 2019 11:22
--- NOTE | 2019-12-13 12:00 | NUR ---
REFER TO LABOR FLOW SHEET
[2019-12-13] MEDS ORDERED: WITCH HAZEL(TUCKS) 40 EA JAR TOP PRN (12:15)
[2019-12-13] MEDS ORDERED: MEASLES,MUMPS,RUBELLA 1 EA INJ SQ ONE (12:15)
[2019-12-13] MEDS ORDERED: TETANUS,DIPTH,PERTUSS P/F (BOOSTRIX) 0.5 ML VIAL IM ONE (12:15)
[2019-12-13] MEDS ORDERED: BENZOCAINE/MENTHOL (DERMOPLAST) 60 ML CAN TP PRN (12:15)
[2019-12-13] MEDS: IBUPROFEN 600 MG (MOTRIN) TAB PO SCH ×3 (12:50→23:57)
--- NOTE | 2019-12-13 13:45 | NUR ---
PT TRANSFERRED FROM -317 TO -308 VIA AMBULATORY IN STABLE CONDITION ACCOMPANIED BY THIS RN, FOB, AND INFANT. CALL LIGHT IN REACH. NO FURTHER REQUESTS AT THIS TIME.
[2019-12-13] MEDS ORDERED: CATHETER FLUSH 10 ML SYR IV SCH (14:00)
[2019-12-13] MEDS: CATHETER FLUSH 10 ML SYR IV SCH (19:55)
[2019-12-13] MEDS ORDERED: DOCUSATE SODIUM 100 MG (COLACE) CAP PO SCH (21:00)
[2019-12-14] VITALS: BP 96/65
[2019-12-14 04:00] VITALS: BP 99/69
[2019-12-14] MEDS: IBUPROFEN 600 MG (MOTRIN) TAB PO SCH ×2 (06:06→12:40)
[2019-12-14] MEDS: CATHETER FLUSH 10 ML SYR IV SCH (06:11)
[2019-12-14 06:49] LABS: BASOPHILS % (AUTO) 0 % (0-10); EOSINOPHILS % (AUTO) 0 % (0-10); HEMATOCRIT 33 % (35-52); HEMOGLOBIN 11.3 G/DL (11.5-16.0); LYMPHOCYTES # (AUTO) 2.4 X 10^3 (1.0-4.0); LYMPHOCYTES % (AUTO) 22 % (12-44); MEAN CORPUSCULAR HEMOGLOBIN 29 PG (25-34); MEAN CORPUSCULAR HGB CONC 34 G/DL (32-36); MEAN CORPUSCULAR VOLUME 85 FL (80-99); MEAN PLATELET VOLUME 10.6 FL (7.4-10.4); MONOCYTES # (AUTO) 0.7 X 10^3 (0.0-1.0); MONOCYTES % (AUTO) 7 % (0-12); NEUTROPHILS # (AUTO) 7.5 X 10^3 (1.8-7.8); NEUTROPHILS % (AUTO) 71 % (42-75); PLATELET COUNT 217 10^3/uL (130-400); WHITE BLOOD COUNT 10.7 10^3/uL (4.3-11.0)
--- NOTE | 2019-12-14 07:54 | Discharge Summary ---
Discharge Summary Hospital Course Problems Reviewed?: Yes Problems/Diagnosis: (1) Encounter for induction of labor Status: Acute Assessment & Plan: Uncomplicated induction with pitocin and AROM and rapid delivery thereafter with no lacerations. Uncomplicated course with asymptomatic very mild anemia. (2) History of herpes genitalis Status: Chronic Assessment & Plan: No lesions noted on admission, discontinue prophylaxis on discharge. Hospital Course Date of Admission: Dec 13, 2019 at 06:20 Admission Diagnosis : Family Physician/Provider: Date of Discharge: 12/14/19 Discharge Diagnosis: See problem list Hospital Course: See problem list Labs and Pending Lab Test: Laboratory Tests 12/14/19 06:30: White Blood Count 10.7, Red Blood Count 3.90L, Hemoglobin 11.3L, Hematocrit 33L, Mean Corpuscular Volume 85, Mean Corpuscular Hemoglobin 29, Mean Corpuscular Hemoglobin Concent 34, Red Cell Distribution Width 14.2, Platelet Count 217, Mean Platelet Volume 10.6H, Neutrophils (%) (Auto) 71, Lymphocytes (%) (Auto) 22, Monocytes (%) (Auto) 7, Eosinophils (%) (Auto) 0, Basophils (%) (Auto) 0, Neutrophils # (Auto) 7.5, Lymphocytes # (Auto) 2.4, Monocytes # (Auto) 0.7, Eosinophils # (Auto) 0.0, Basophils # (Auto) 0.0 Home Meds Active Reported Acyclovir 400 Mg Tablet 400 Mg PO TID Vitamins ( Vit W-Ca,Fe,FA(<1 mg)) 1 Each Tablet 1 Each PO DAILY Assessment/Pt DC Instructions Follow up with Dr. Morales in 6 weeks for visit. Discharge Diet: Regular Diet Activity as Tolerated: Yes (avoid strenuous activity x 6 weeks) Discharge Physical Examination Allergies: Coded Allergies: No Known Drug Allergies (Unverified , 09/03/15) General Appearance: No Apparent Distress Respiratory: Lungs Clear, Normal Breath Sounds Cardiovascular: Regular Rate, Rhythm, No Murmur Gastrointestinal: Other (fundus firm at umbilicus) Extremity: No Pedal Edema Skin: Normal Color, Warm/Dry Neurologic/Psychiatric: Alert, Normal Mood/Affect Clinical Quality Measures DVT/VTE Risk/Contraindication: Risk Factor Score Per Nursin RFS Level Per Nursing on Admit: 1=Low/No VTE PPX JAYME MORALES MD Dec 14, 2019 07:54
[2019-12-14 09:00] VITALS: BP 88/54
[2019-12-14 15:00] VITALS: BP 108/68
== END 2019-12-14 17:45 | disposition home or self-care (01) | DRG 807 ==
LOC: LDRP 06:20
PROVIDERS: ADMIT Family Medicine; ATTEND Family Medicine
PROC: 10E0XZZ Delivery of Products of Conception, External Approach (ICD-10-PCS; principal; 2019-12-13)
PROC: 3E033VJ Introduction of Other Hormone into Peripheral Vein, Percutaneous Approach (ICD-10-PCS; 2019-12-13)
DX: O98.32 Other infections with a predominantly sexual mode of transmission complicating childbirth (principal); Z37.0 Single live birth; A60.09 Herpesviral infection of other urogenital tract; Z3A.39 39 weeks gestation of pregnancy; Z79.899 Other long term (current) drug therapy; O69.89X0 Labor and delivery complicated by other cord complications, not applicable or unspecified; O90.81 Anemia of the puerperium; D64.9 Anemia, unspecified; Z23 Encounter for immunization
CPT/HCPCS: 36415; 85025; 86850; 86900; 86901; 90686

== ENCOUNTER 2021-08-08 12:54 | Emergency (ER) | payer SELFPAY ==
[~2021-08-08] VITALS: Ht 151 cm; Wt 74.8 kg
[~2021-08-08 12:54] MED LIST changes: -ACYC400T PO; +ACYC400T21 PO
[2021-08-08] MEDS ORDERED: predniSONE 20 MG TAB PO ONE (13:30)
--- NOTE | 2021-08-08 13:32 | ED General ---
General Chief Complaint: Neuro-Stroke Like Symptoms Stated Complaint: R SIDE OF FACE NUMBNESS Source of Information: Patient Exam Limitations: No Limitations History of Present Illness Date Seen by Provider: August 08, 2021 Time Seen by Provider: 13:31 Initial Comments Patient is a 35-year-old female with a history of Candelaria's palsy who is speaking who presents the ED with right-sided facial pain and numbness. Symptoms started 4 to 5 days ago with right ear pain. Was diagnosed with ear infection was given antibiotics. This pain migrated from the ear to the right forehead, right mid to lower face. Noted drooping and weakness. She reports numbness and tingling sensation. Difficulty eating secondary to the muscle weakness. She reports of pain to the right eye with some eye watering. She is continue having right ear pain with some mild headache and dizziness without any ear ringing. She noted a rash over the past few days to the right outer ear. She states she has a history of Candelaria's palsy 8 to 9 years ago and feels very similar. She has no upper or lower extremity weakness, chest pain, abdominal pain vomiting, diarrhea. Has been taking anti-inflammatories. Went to [facility] and was sent over to the ED for further evaluation. She does report some blurry vision in the right eye. She states last episode she felt like her vision was worse but symptoms did resolve after a few months. According to [facility] she has a history of stroke but after talking with patient she states that she had a similar episode that may been related to the Candelaria' palsy but had some pain in her chest at the time. Patient with a steady gait. She appears in no acute distress. Allergies and Home Medications Allergies Coded Allergies: No Known Drug Allergies (Unverified , 09/03/15) Patient Home Medication List Home Medication List Reviewed: Yes Acyclovir (Acyclovir) 400 Mg Tablet, 400 MG PO 5XD Prescribed by: AMANDA CURRY on 08/08/21 4930 Hydrocodone/Acetaminophen (Hydrocodone-Acetamin 5-325 mg) 5 Mg-325 Mg Tablet, 1 TAB PO Q4H PRN for PAIN-MODERATE (5-7) Prescribed by: AMANDA CURRY on 08/08/21 4272 Prednisone (Prednisone) 50 Mg Tab, 50 MG PO DAILY Prescribed by: AMANDA CURRY on 08/08/21 1338 Vit W-Ca,Fe,FA(<1 mg) ( Vitamins) 1 Each Tablet, 1 EACH PO DAILY, (Reported) Entered as Reported by: ALBERTO SIFUENTES on 09/24/16 1029 Review of Systems Review of Systems Constitutional: No chills, No diaphoresis, No malaise, No weakness EENTM: ear pain, blurred vision, mouth pain; No ear discharge, No vision loss, No dental problems, No nose pain, No throat pain, No throat swelling Respiratory: No cough, No hemoptysis, No orthopnea, No short of breath Cardiovascular: No chest pain Gastrointestinal: No abdominal pain, No diarrhea, No nausea, No vomiting Genitourinary: No decreased output, No discharge Musculoskeletal: No back pain, No joint pain Skin: change in color; No change in hair/nails; rash (Rash to right outer ear) Psychiatric/Neurological: Headache, Numbness (Right-sided facial numbness), Weakness (Right-sided facial muscle weakness), Other (Dizziness) All Other Systems Reviewed Negative Unless Noted: Yes Past Leamspw-Ttbrvn-Oanath Hx Immunizations Up To Date Tetanus Booster (TDap): Less than 5yrs PED Vaccines UTD: Yes Seasonal Allergies Seasonal Allergies: No Past Medical History Surgeries: No Respiratory: No Cardiac: No Neurological: No Female Reproductive Disorders: Denies Sexually Transmitted Disease: No HIV/AIDS: No Genitourinary: No Gastrointestinal: No Musculoskeletal: No Endocrine: No HEENT: No Loss of Vision: Denies Hearing Impairment: Denies Cancer: No Psychosocial: No Integumentary: No Blood Disorders: No Adverse Reaction/Blood Tranf: No Family Medical History Cardiovascular disease Congenital heart disease FH: liver cancer Grandparents (Maternal Grandmother) Hypercholesterolemia 19 FATHER Hypertension 19 FATHER Kidney disease Grandparents (Maternal Grandfather) Physical Exam Vital Signs Vital Signs - First Documented 08/08/21 13:03 Temp 36.3 Pulse 81 Resp 16 B/P (MAP) 148/94 (112) Pulse Ox 98 Capillary Refill : Height, Weight, BMI Height: 5'1.00" Weight: 174lbs. 0.0oz. [id number]; 32.9 BMI Method: General Appearance: No Apparent Distress, WD/WN Eyes: Bilateral Eye Normal Inspection, Bilateral Eye PERRL, Bilateral Eye EOMI HEENT: PERRL/EOMI, Other (Erythematous papular rash to the right outer ear. Small vesicles. No pustules. Mild right TM erythema.) Neck: Full Range of Motion, Normal Inspection, Non Tender, Supple Respiratory: Chest Non Tender, Lungs Clear, Normal Breath Sounds, No Accessory Muscle Use, No Respiratory Distress Cardiovascular: Regular Rate, Rhythm, No Edema, No Gallop, No JVD, No Murmur Gastrointestinal: Normal Bowel Sounds, No Organomegaly, No Pulsatile Mass, Non Tender Back: Normal Inspection, No CVA Tenderness, No Vertebral Tenderness Extremity: Normal Capillary Refill, Normal Inspection, Normal Range of Motion, Non Tender, No Calf Tenderness Neurologic/Psychiatric: Alert, Oriented x3, Other (Right-sided facial paralysis involving the forehead, mid to lower face. No tongue deviation) Skin: Other (Small erythematous papular vascular rash to right outer ear.) Progress/Results/Core Measures Suspected Sepsis SIRS Temperature: Pulse: Respiratory Rate: Blood Pressure / Mean: Results/Orders My Orders Orders - SARABJIT SIM Prednisone Tablet (Deltasone Tablet) (08/08/21 13:30) Medications Given in ED Current Medications Medications Dose Ordered Sig/Santosh Route Start Time Stop Time Status Last Admin Dose Admin Prednisone 50 mg ONCE ONCE PO 08/08/21 13:30 08/08/21 13:31 DC 08/08/21 13:57 50 MG Vital Signs/I&O 08/08/21 08/08/21 13:03 14:00 Temp 36.3 Pulse 81 84 Resp 16 20 B/P (MAP) 148/94 (112) 127/83 Pulse Ox 98 96 Capillary Refill : Departure Communication (PCP) Patient has a rash to the right outer ear concerning for shingles. She has facial paralysis on the right side. Involvement of the forehead, mid to lower face. No deviation of the tongue. She reports a mild right eye pain with some blurry vision and right ear discomfort likely secondary to the pain from the rash. She has no other focal neural deficits. History of Candelaria's palsy similar type episode 8 years ago. She states resolved after 2 or 3 months. Symptoms started for 5 days ago with right ear pain and migrated to the face with paralysis numbness and pain. Discussed with patient concerning for more Candelaria's palsy. Unclear if she has had a previous stroke before but this seems to be obvious with the rash on the right outer ear and with her current symptoms and exam. Do not think lab work or imaging is necessarily needed at this time. She otherwise feels fine. Discussed starting on antiviral and short burst steroids for the inflammatory response. We will provide pain medication for the pain that she is experiencing. She states the pain is sharp and burning across the side of the face. Concerned that this rash may get worse around the right outer ear. Discussed artificial tears for the right eye. May be consider shutting the right eye with tape at night or wearing some type of goggles or eyeglasses. Recommend following up with optometry for further eye exam. If worsening ear pain discomfort dizziness ear ringing may be considered followed up with ENT. Could be developing some form of Alejandro Kothari. Short regiment of high-dose steroids and antivirals would likely help resolve her symptoms. Follow-up with PCP in 2 to 3 days for reevaluation. If any worsening symptoms return back to ED for further evaluation. Rash does not appear to be cellulitic. Impression Primary Impression: Candelaria palsy Disposition: 01 HOME, SELF-CARE Condition: Stable Departure-Patient Inst. Decision time for Depature: 13:36 Referrals: [facility] [place] ([place]Family) Primary Care Physician Patient Instructions: Candelaria's Palsy (DC) Add. Discharge Instructions: Need to follow-up with optometry for further evaluation of the right eye. Recommend artificial tears while awake. May be reasonable to tape the right eye at night. Protective glasses and goggles to prevent any eye injury. Need to follow-up with primary care physician in the next 4 to 5 days. Worsening symptoms return back to ED. All discharge instructions reviewed with patient and/or family. Voiced understanding. Scripts Hydrocodone/Acetaminophen (Hydrocodone-Acetamin 5-325 mg) 5 Mg-325 Mg Tablet 1 TAB PO Q4H PRN for PAIN-MODERATE (5-7), #8 TAB Prov: SARABJIT SIM 08/08/21 Prednisone (Prednisone) 50 Mg Tab 50 MG PO DAILY for 5 Days, #5 TAB Prov: SARABJIT SIM 08/08/21 Acyclovir (Acyclovir) 400 Mg Tablet 400 MG PO 5XD for 7 Days, #35 TAB Prov: SARABJIT SIM 08/08/21 SARABJIT SIM August 08, 2021 13:32
[2021-08-08] MEDS ORDERED: PRD50T PO (13:38)
[2021-08-08] MEDS ORDERED: ACYC400T21 PO (13:38)
[2021-08-08] MEDS ORDERED: ACHD5005 PO (13:38)
[2021-08-08 14:00] VITALS: BP 127/83
== END 2021-08-08 14:05 | disposition home or self-care (01) ==
LOC: EDUNIT# 12:54 → ER 12:56
DX: G51.0 Bell's palsy (principal); Z86.73 Personal history of transient ischemic attack (TIA), and cerebral infarction without residual deficits

== ENCOUNTER 2022-10-25 06:23 | Inpatient (IN) | payer SELFPAY ==
[~2022-10-25] VITALS: Ht 160 cm; Wt 81.8 kg
[2022-10-25] VITALS (15 sets, daily range): BP systolic 101–145; BP diastolic 58–86
[~2022-10-25 06:23] MED LIST changes: +ACHD5005 PO; +PRD50T PO
[2022-10-25] MEDS ORDERED: AMPICILLIN (IV) 2,000 MG in NS (IVPB) 50 ML 50 ML IV SCH (06:38)
[2022-10-25] MEDS ORDERED: AMPICILLIN 2,000 MG/14.8 ML (IV USE) ONE (06:43)
[2022-10-25] MEDS ORDERED: D5 LR 1,000 ML IV SOLN 1,000 ML IV ONE (06:43)
[2022-10-25] MEDS ORDERED: OXYTOCIN PRE-MIX DRIP 500 ML IV ONE (06:43)
[2022-10-25] MEDS ORDERED: NS (IVPB) 100 ML 100 ML ONE (06:43)
[2022-10-25] MEDS ORDERED: D5 LR 1,000 ML IV SOLN 1,000 ML IV SCH (06:45)
[2022-10-25] MEDS ORDERED: MINERAL OIL 30 ML UDC TOP PRN (06:45)
[2022-10-25 06:53] LABS: BASOPHILS % (AUTO) 0 % (0-10); EOSINOPHILS # (AUTO) 0.1 10^3/uL (0.0-0.3); EOSINOPHILS % (AUTO) 1 % (0-10); HEMATOCRIT 35 % (35-52); HEMOGLOBIN 12.1 g/dL (11.5-16.0); LYMPHOCYTES # (AUTO) 2.1 10^3/uL (1.0-4.0); LYMPHOCYTES % (AUTO) 22 % (12-44); MEAN CORPUSCULAR HEMOGLOBIN 29 pg (25-34); MEAN CORPUSCULAR HGB CONC 35 g/dL (32-36); MEAN CORPUSCULAR VOLUME 84 fL (80-99); MEAN PLATELET VOLUME 10.7 fL (9.0-12.2); MONOCYTES # (AUTO) 0.5 10^3/uL (0.0-1.0); MONOCYTES % (AUTO) 5 % (0-12); NEUTROPHILS # (AUTO) 6.7 10^3/uL (1.8-7.8); NEUTROPHILS % (AUTO) 72 % (42-75); PLATELET COUNT 223 10^3/uL (130-400); WHITE BLOOD COUNT 9.3 10^3/uL (4.3-11.0)
[2022-10-25] MEDS: OXYTOCIN PRE-MIX DRIP 500 ML IV SCH ×2 (07:27→08:03)
--- NOTE | 2022-10-25 07:50 | History & Physical-OB ---
OB - Chief Complaint & HPI Date/Time Date of Admission: Date of Admission: Oct 25, 2022 at 06:37 Date seen by a Provider: Oct 25, 2022 Time Seen by a Provider: 07:00 Chief Complaint/History OB-Reason for Admission/Chief: Onset of Labor Hx : 4 Hx Para: 3 Expected Date of Delivery: Oct 29, 2022 Gestational Age in Weeks: 39 Gestational Age in Days: 3 Other reason for admission: Patient having contractions 2 hrs prior to arrival. No LOF, vag bleeding. + FM. She was advanced dilation in the clinic last week and dilated to 8-9 cm upon arrival. GBS + History of Labs O+, Ab neg Rub Imm HIV/RPR/HepB/C NR Normal 1 hr GTT GBS Positive h/o HSV, no active lesions in Allergies and Home Medications Allergies Coded Allergies: No Known Drug Allergies (Unverified , 09/03/15) Patient Home Medication List Home Medication List Reviewed: Yes Acyclovir (Acyclovir) 400 Mg Tablet, 400 MG PO 5XD Prescribed by: AMANDA CURRY on 08/08/21 1338 Hydrocodone/Acetaminophen (Hydrocodone-Acetamin 5-325 mg) 5 Mg-325 Mg Tablet, 1 TAB PO Q4H PRN for PAIN-MODERATE (5-7) Prescribed by: AMANDA CURRY on 08/08/21 1338 Prednisone (Prednisone) 50 Mg Tab, 50 MG PO DAILY Prescribed by: AMANDA CURRY on 08/08/21 1338 Vit W-Ca,Fe,FA(<1 mg) ( Vitamins) 1 Each Tablet, 1 EACH PO DAILY, (Reported) Entered as Reported by: ALBERTO SIFUENTES on 09/24/16 1029 OB - History Hx of Present Care: Yes Ultrasounds: Normal mid trimester US Obstetrical Complications: None Medical Complications: None Information Induced Hypertension: No Maternal Gestational Diabetes: No Hemorrhage: No Obstetrical History Hx : 4 Hx Para: 3 Hx # Term Pregnancies: 3 Number of Living Children: 3 Hx Termination: No Hx Multiple Gestation: No Hx Stillbirth: No Hx Complication: No Hx Induced Hypertens: No Hx Maternal Gestational Diabet: No Delivery History Hx Dystocia: No Hx Large For Gestational Age I: No Hx Small for Gestational Age I: No Hx Section: No Hx Vaginal Delivery Post C-Sec: No Hx Blood Disorders: No Adverse Rxn to Tranfusion: No Patient Past Medical History PMHx: Migraines Stroke like symptoms with unclear diagnosis at age 21 Genital herpes on suppression PSurgHx: Bilateral inguinal hernia repair Social History/Family History Alcohol Use: Denies Use Recreational Drug Use: No Smoking Cessation: Never smoker 2nd Hand Smoke Exposure: No Immunizations Tetanus Booster (TDap): Less than 5yrs Rubella: immune RPR/VDRL: Negative GBS Status: Positive HBsAG: Negative OB - Admission Exam Physical Exam Vitals: Vital Signs 10/25/22 06:36 Temp 36.3 Pulse 93 Resp 18 B/P (MAP) 145/84 (104) Pulse Ox 98 O2 Delivery Room Air HEENT: NCAT Heart: Rhythm Normal Lungs: Clear Abdomen: Gravid Cervical Dilatation: 9cm Effacement: 100% Station: +1 Membranes: Intact Heart Rate: 130's Accelerations: Accelerations Present Decelerations: Early Decelerations Short Term Variability: Present Mechanical Design Technician Variability: Average (6-25) Contractions on Admission: < 5 Minutes Apart Intensity: Firm Labs Laboratory Tests Test 10/25/22 06:40 Range/Units White Blood Count 9.3 4.3-11.0 10^3/uL Red Blood Count 4.16 3.80-5.11 10^6/uL Hemoglobin 12.1 11.5-16.0 g/dL Hematocrit 35 35-52 % Mean Corpuscular Volume 84 80-99 fL Mean Corpuscular Hemoglobin 29 25-34 pg Mean Corpuscular Hemoglobin Concent 35 32-36 g/dL Red Cell Distribution Width 14.3 10.0-14.5 % Platelet Count 223 130-400 10^3/uL Mean Platelet Volume 10.7 9.0-12.2 fL Immature Granulocyte % (Auto) 0 % Neutrophils (%) (Auto) 72 42-75 % Lymphocytes (%) (Auto) 22 12-44 % Monocytes (%) (Auto) 5 0-12 % Eosinophils (%) (Auto) 1 0-10 % Basophils (%) (Auto) 0 0-10 % Neutrophils # (Auto) 6.7 1.8-7.8 10^3/uL Lymphocytes # (Auto) 2.1 1.0-4.0 10^3/uL Monocytes # (Auto) 0.5 0.0-1.0 10^3/uL Eosinophils # (Auto) 0.1 0.0-0.3 10^3/uL Basophils # (Auto) 0.0 0.0-0.1 10^3/uL Immature Granulocyte # (Auto) 0.0 0.0-0.1 10^3/uL OB - Assessment/Plan/Diagnosis Assessment Assessment: active labor, group B positive strep Admission Dx Third trimester 39 week gestation GBS Pos H/o HSV Admission Status: Inpatient Order (span 2 midnights) Reason for Inpatient Admission: Active labor Plan Other Plan 36 yo @ 39.3 wga here in active labor Plan - GBS +, will start ampicillin - Expectant management - H/o HSV on suppression, no active lesions MIREYA CHEN MD Oct 25, 2022 07:50
--- NOTE | 2022-10-25 07:53 | OB Labor & Delivery Record ---
Vag Delivery Note Vag Delivery Note Date of Delivery: 10/25/22 Preoperative Diagnosis: María Lua is a (36 /Para 4/3 @ 39.3 wga here in active labor Postoperative Diagnosis: Same Surgeon: MIREYA CHEN MD Software Performance Engineer: None Anesthesia: Natural Delivery Type: @ 0723 Findings: Viable Female , apgars 9/9, weight 7#7, 3360 grams Lacerations: None Intact placenta with 3 vessel cord. No nuchal cord, body cord or shoulder dystocia Estimated Blood Loss: 100 ml Complications: None Condition: Stable Description of Procedure: The patient is a 36 year old female who presented in active labor. She was ad mitted and informed consent was obtained. Her labor course was remarkable for GBS not adequately treated. She progressed to complete dilatation and began to push. She was then set up for delivery. The 's head was delivered atraumatically in the CIPRIANO position. The shoulders and remainder of the infant's body were then delivered without difficulty. Upon delivery, the was vigorous and placed on maternal chest and the mouth and nares were bulb suctioned. After a delay 2 mins cord was doubly clamped and cut and the remained on maternal chest. An intact placenta with 3-vessel cord delivered via Rosa and there was found to be minimal bleeding.~ Vigorous fundal massage was performed and the fundus was found to be firm. IV oxytocin was given. Examination of the vagina and perineum revealed no lacerations that required repair. Following the repair, sponge, instrument and needle counts were correct. Mom and baby were both in stable condition in the labor suite. Vitals - Labs Vital Signs - I&O Vital Signs Date Time Temp Pulse Resp B/P (MAP) Pulse Ox O2 Delivery O2 Flow Rate FiO2 10/25/22 06:36 36.3 93 18 145/84 (104) 98 Room Air Labs Laboratory Tests 10/25/22 06:40: White Blood Count 9.3, Red Blood Count 4.16, Hemoglobin 12.1, Hematocrit 35, Mean Corpuscular Volume 84, Mean Corpuscular Hemoglobin 29, Mean Corpuscular Hemoglobin Concent 35, Red Cell Distribution Width 14.3, Platelet Count 223, Mean Platelet Volume 10.7, Immature Granulocyte % (Auto) 0, Neutrophils (%) (Auto) 72, Lymphocytes (%) (Auto) 22, Monocytes (%) (Auto) 5, Eosinophils (%) (Auto) 1, Basophils (%) (Auto) 0, Neutrophils # (Auto) 6.7, Lymphocytes # (Auto) 2.1, Monocytes # (Auto) 0.5, Eosinophils # (Auto) 0.1, Basophils # (Auto) 0.0, Immature Granulocyte # (Auto) 0.0 MIREYA CHEN MD Oct 25, 2022 07:53
[2022-10-25] MEDS ORDERED: BENZOCAINE/MENTHOL (DERMOPLAST) 56 ML CAN TP PRN (08:00)
[2022-10-25] MEDS ORDERED: WITCH HAZEL(TUCKS) 40 EA JAR TOP PRN (08:00)
[2022-10-25] MEDS: IBUPROFEN 600 MG (MOTRIN) TAB PO SCH ×3 (09:48→21:49)
[2022-10-25] MEDS: ACETAMINOPHEN 500 MG TABLET PO SCH ×3 (09:48→21:49)
[2022-10-25] MEDS: DOCUSATE SODIUM 100 MG CAPSULE PO SCH ×2 (10:25→20:27)
[2022-10-25] MEDS ORDERED: AMPICILLIN (IV) 1,000 MG in NS (IVPB) 50 ML 50 ML IV SCH (10:45)
[2022-10-25] MEDS ORDERED: CATHETER FLUSH 10 ML SYR IV SCH ×2 (14:00)
[2022-10-26 00:10] VITALS: BP 106/63
[2022-10-26 04:15] VITALS: BP 105/66
[2022-10-26] MEDS: IBUPROFEN 600 MG (MOTRIN) TAB PO SCH ×3 (04:15→16:34)
[2022-10-26] MEDS: ACETAMINOPHEN 500 MG TABLET PO SCH ×3 (04:16→16:34)
[2022-10-26 05:45] LABS: BASOPHILS % (AUTO) 0 % (0-10); EOSINOPHILS # (AUTO) 0.1 10^3/uL (0.0-0.3); EOSINOPHILS % (AUTO) 1 % (0-10); HEMATOCRIT 34 % (35-52); HEMOGLOBIN 11.4 g/dL (11.5-16.0); LYMPHOCYTES # (AUTO) 3.1 10^3/uL (1.0-4.0); LYMPHOCYTES % (AUTO) 31 % (12-44); MEAN CORPUSCULAR HEMOGLOBIN 28 pg (25-34); MEAN CORPUSCULAR HGB CONC 33 g/dL (32-36); MEAN CORPUSCULAR VOLUME 85 fL (80-99); MEAN PLATELET VOLUME 10.6 fL (9.0-12.2); MONOCYTES # (AUTO) 0.5 10^3/uL (0.0-1.0); MONOCYTES % (AUTO) 5 % (0-12); NEUTROPHILS # (AUTO) 6.4 10^3/uL (1.8-7.8); NEUTROPHILS % (AUTO) 63 % (42-75); PLATELET COUNT 215 10^3/uL (130-400); WHITE BLOOD COUNT 10.1 10^3/uL (4.3-11.0)
[2022-10-26] MEDS ORDERED: PRENATAL VITAMIN 1 EA TAB PO SCH (07:00)
[2022-10-26 10:04] VITALS: BP 108/65
[2022-10-26] MEDS: DOCUSATE SODIUM 100 MG CAPSULE PO SCH (10:06)
--- NOTE | 2022-10-26 12:08 | Discharge Summary ---
Diagnosis/Chief Complaint Date of Admission Oct 25, 2022 at 06:37 Date of Discharge 10/26/2022 Admission Diagnosis Admission Diagnosis Third trimester 39 week gestation GBS Positive in Advanced maternal age Discharge Diagnosis Term Asymptomatic anemia of acute blood loss Discharge Summary-Simple/Stand Procedures Discharge Physical Examination Allergies: Coded Allergies: No Known Drug Allergies (Unverified , 09/03/15) Vitals & I&Os Vital Sign - Last 12Hours Date Time Temp Pulse Resp B/P (MAP) Pulse Ox O2 Delivery O2 Flow Rate FiO2 10/26/22 10:04 36.4 70 18 108/65 (79) 96 Room Air General Appearance: Alert, Oriented X3, No Acute Distress Respiratory: Clear to Auscultation, Normal Air Movement Cardiovascular: Regular Rate, No Murmurs Abdominal: Normal Bowel Sounds, Soft, No Tenderness, Other (Fundus firm and below umbilicus) Extremities: No Edema, No Tenderness/Swelling Neuro: Normal Speech Psych/Mental Status: Mental Status NL, Mood NL Hospital Course See final discharge diagnosis. Discussion & Recommendations 36 yo G4 now P4 delivered term female infant via . Doing well. Will followup with Dr Morales in 6 weeks. Discharge Condition at discharge stable Instructions to patient/family Please see electronic discharge instructions given to patient. Discharge Medications Reviewed and agree with Discharge Medication list on patient's Discharge Instruction sheet MIREYA CHEN MD Oct 26, 2022 12:07
[2022-10-26] MEDS ORDERED: ACET-93 PO (12:10)
[2022-10-26] MEDS ORDERED: IBUP-844 PO (12:10)
[2022-10-26] MEDS ORDERED: DOCU100C37 PO (12:10)
--- NOTE | 2022-10-26 12:11 | Discharge Summary ---
Discharge Inst-[facility] Reconcile Patient Problems Problems Reviewed?: Yes Depart Medications New, Converted or Re-Newed RX: Transmitted to Pharmacy New Medications: Acetaminophen (Acetaminophen) 500 Mg Tablet 1000 MG PO Q6H, #30 TAB Docusate Sodium (Docusate Sodium) 100 Mg Capsule 100 MG PO BID, #14 CAP Ibuprofen (Ibu) 600 Mg Tablet 600 MG PO Q6H, #30 TAB Continued Medications: Vit W-Ca,Fe,FA(<1 mg) ( Vitamins) 1 Each Tablet 1 EACH PO DAILY, TAB Discontinued Medications: Acyclovir (Acyclovir) 400 Mg Tablet 400 MG PO 5XD for 7 Days, #35 TAB Hydrocodone/Acetaminophen (Hydrocodone-Acetamin 5-325 mg) 5 Mg-325 Mg Tablet 1 TAB PO Q4H PRN for PAIN-MODERATE (5-7), #8 TAB Prednisone (Prednisone) 50 Mg Tab 50 MG PO DAILY for 5 Days, #5 TAB Follow Up/Instructions Goal/Follow Up: 6 week [place] Activity Activity: Activity as Tolerated Driving Instructions: You May Drive NO SMOKING: NO SMOKING Nothing Inside Vagina: No Douching, No [place], No Tampons Diet Discharge Diet: No Restrictions Symptoms to Report to : Bleeding Excessive, Fever Over 101 Degrees F MIREYA CHEN MD Oct 26, 2022 12:11
[2022-10-26 14:10] VITALS: BP 105/62
== END 2022-10-26 18:55 | disposition home or self-care (01) | DRG 806 ==
LOC: WSo 06:23 → LDRP 06:24 → WSo 06:37 → LDRP 06:37
PROVIDERS: ADMIT Family Medicine; ATTEND Family Medicine
PROC: 10E0XZZ Delivery of Products of Conception, External Approach (ICD-10-PCS; principal; 2022-10-25)
DX: O98.32 Other infections with a predominantly sexual mode of transmission complicating childbirth (principal); D62 Acute posthemorrhagic anemia; Z37.0 Single live birth; Z3A.39 39 weeks gestation of pregnancy; O99.824 Streptococcus B carrier state complicating childbirth; Z79.899 Other long term (current) drug therapy; O90.81 Anemia of the puerperium; A60.09 Herpesviral infection of other urogenital tract
CPT/HCPCS: 36415; 85025; 86850; 86900; 86901; 99212